=== PATIENT | male | born 1995 | race Caucasian/White ===

== ENCOUNTER 2023-05-25 04:18 | Emergency (ER) | payer OTHER ==
[2023-05-25 04:35] VITALS: BP 145/83; O2SAT 97
[2023-05-25] MEDS ORDERED: oxyCODONE 5 MG TABLET PO STA (04:41)
[2023-05-25] MEDS ORDERED: oxyCODONE/ACET 5/325 Prepack 4 PO STA (04:41)
--- NOTE | 2023-05-25 04:43 | ED Physician Documentation ---
PD HPI HEENT - Stated complaint Stated Complaint: TOOTH PX, HEADACHE - Chief complaint Chief Complaint: Heent - History obtained from History obtained from: Patient - Additional information Additional information: Patient is a 27-year-old male presenting for evaluation of left lower dental pain that has been present for the past 2 to 3 days. Patient went to the walk- in clinic earlier today and was prescribed amoxicillin and meloxicam. He reports he has tried bdbg-mim-chsluom acetaminophen without any improvement in his pain and now he is starting to get a headache. He last used Tylenol at 3:00 this morning. Denies fever. Tolerating p.o. Normal speech. Does not currently have a dentist and states he will have to [facility]. Review of Systems Constitutional: denies: Fever Throat: reports: Dental pain / toothache Cardiac: denies: Chest pain / pressure Respiratory: denies: Dyspnea Neurologic: reports: Headache PD PAST MEDICAL HISTORY - Present Medications Home Medications: Ambulatory Orders Medication Instructions Recorded Confirmed Oxycodone HCl/Acetaminophen 1 each PO Q6H PRN #10 tablet 05/25/23 [Percocet 5-325 mg Tablet] - Allergies Allergies/Adverse Reactions: Allergies Allergy/AdvReac Type Severity Reaction Status Date / Time peanut Allergy Anaphylaxis Verified 05/25/23 04:30 PD ED PE NORMAL - General General: Alert and oriented X 3, No acute distress, Well developed/nourished - HEENT HEENT: Atraumatic, Other (Multiple dental fillings, tenderness around left lower molar, no abscess or fluctuance, no signs of deep space infection). No: Dentition benign - Neck Neck: Supple, no meningeal sign - Respiratory Respiratory: No respiratory distress Results - Vitals Vitals: Vital Signs - 24 hr 05/25/23 04:24 Temperature 36.7 C Heart Rate 78 Respiratory 18 Rate Blood Pressure 145/83 H O2 Saturation 97 Oxygen O2 Source Room air PD Medical Decision Making - ED course ED course: Patient with worsening dental pain. Started on amoxicillin earlier today but yxgk-lch-gfrrlwf medications are not helping with his pain. Afebrile and no signs of abscess or other deep space infection. Normal speech and tolerating p.o. Will prescribe a short course of pain medications to use as needed. Patient also given list of dental resources. Counseled on concerning symptoms to return for. Departure - Departure Disposition: 01 Home, Self Care Clinical Impression: Pain, dental Condition: Stable Instructions: ED Tooth Pain Prescriptions: Oxycodone HCl/Acetaminophen [Percocet 5-325 mg Tablet] 1 each PO Q6H PRN #10 tablet PRN Reason: pain Comments: Please continue with taking the antibiotic. I have also sent a prescription for [place] of narcotic pain medications to [facility] in [place]. I am prescribing a short course of narcotic pain medication for you. These are potentially dangerous and addictive medications that should be used carefully. These medications may constipate you. Take an ukau-rod-pjpbnuw stool softener (docusate) twice daily with plenty of water while taking these medications. If you go 24 hours without a bowel movement, take tmdr-cpj-reuijzf miralax, per package instructions. Do not drink or drive while taking these medications. If you received narcotic or sedating medications while in the emergency department, do not drive for 24 hours. Store this medication in a safe, secure place and out of reach of children. It is a violation of federal law to give or sell this medication to another person or to use in a manner other than prescribed. The ED will not refill narcotic prescriptions, including prescriptions lost or stolen. To dispose of unwanted medications: 1. [facility] [address] in [place] has a medication drop box. They accept prescription medications (in pill form) Friday through Friday 9:00 a.m. to 5:00 p.m. 2. [facility] [employer] accepts prescription medications (in pill form only) for disposal year round. Call for more information. 3. Contact the [facility] for the next [facility] sponsored prescription drug collection event. , [phone], or [phone]; Note that many narcotic pain relievers also contain Tylenol/acetaminophen. Please ensure that your total dose of acetaminophen from all sources does not exceed 3 g (3000 mg) per day. It is very important that you follow-up with a dentist. When it comes to dental problems like yours, the emergency department can only offer a short-term solution to your long-term problem. A couple of low cost options for dental care include: [facility] in [place], calls [phone] for an appointment Or [facility] in [place], call [phone] for an appointment. Forms: PCP List
== END 2023-05-25 05:02 | disposition home or self-care (01) ==
LOC: ED 04:18
DX: K08.89 Other specified disorders of teeth and supporting structures (principal)
CPT/HCPCS: 99282; 99283; A9270